=== PATIENT | female | born 1960 ===

== ENCOUNTER 2017-11-24 06:07 | Day surgery (SDC) | payer MEDICAID ==
--- NOTE | 2017-11-24 07:24 | ED PDOC ---
Upper Extremity Pain/Injury Time Seen by Provider: 11/24/17 07:10 Chief Complaint (Nursing): Upper Extremity Problem/Injury History Per: Patient History/Exam Limitations: no limitations Onset/Duration Of Symptoms: Gradual (3 montha) Current Symptoms Are (Timing): Still Present Quality: Dull Severity: Mild Exacerbating Factor(s): Movement Additional History Per: Patient Additional Complaint(s): pt sent in by Dr moreno for worsening elft shoulder pain after surgery, no other complaints no hand n/t/w Past Medical History Reviewed: Historical Data, Nursing Documentation, Vital Signs Vital Signs: Last Vital Signs Temp 98.7 F 11/24/17 06:27 Pulse 60 11/24/17 06:27 Resp 16 11/24/17 06:27 BP 186/106 H 11/24/17 06:27 Pulse Ox 99 11/24/17 06:27 - Medical History PMH: No Chronic Diseases, HTN - Family History Family History: States: Unknown Family Hx - Living Arrangements Living Arrangements: With Family - Social History Current smoker - smoking cessation education provided: No - Home Medications Home Medications: Ambulatory Orders Medication Instructions Recorded Aspirin [Ecotrin] 81 mg PO DAILY 11/24/17 Atorvastatin [Lipitor] 20 mg PO DAILY 11/24/17 Furosemide [Lasix] 20 mg PO DAILY 11/24/17 Omeprazole [Omeprazole] 20 mg PO DAILY 11/24/17 Valsartan [Diovan] 160 mg PO DAILY 11/24/17 amLODIPine [Norvasc] 10 mg PO DAILY 11/24/17 oxyCODONE/Acetaminophen [Percocet 1 tab PO TID PRN 11/24/17 5/325 mg Tab] - Allergies Allergies/Adverse Reactions: Allergies Allergy/AdvReac Type Severity Reaction Status Date / Time No Known Allergies Allergy Verified 11/24/17 06:32 Review of Systems ROS Statement: Except As Marked, All Systems Reviewed And Found Negative Constitutional: Negative for: Fever, Chills Cardiovascular: Negative for: Chest Pain Respiratory: Negative for: Shortness of Breath Gastrointestinal: Negative for: Nausea, Vomiting Musculoskeletal: Positive for: Arm Pain (left) Neurological: Negative for: Weakness, Numbness Physical Exam - Reviewed Nursing Documentation Reviewed: Yes Vital Signs Reviewed: Yes - Physical Exam Appears: Positive for: Well Head Exam: Positive for: ATRAUMATIC, NORMAL INSPECTION, NORMOCEPHALIC Eye Exam: Positive for: Normal appearance Neck: Positive for: Normal, Painless ROM, Supple Cardiovascular/Chest: Positive for: Regular Rate, Rhythm, Chest Non Tender. Negative for: Edema, Gallop, Murmur, Bradycardia, Tachycardia, Irregularly Irregular Respiratory: Positive for: Normal Breath Sounds. Negative for: Decreased Breath Sounds, Accessory Muscle Use, Crackles, Rales, Rhonchi, Stridor, Wheezing , Respiratory Distress Pulses-Radial (L): 2+ Pulses-Radial (R): 2+ Back: Positive for: Normal Inspection Extremity: Positive for: Normal ROM (pain with rom of left shoulder prev anterior shoulder scar nvi), Capillary Refill (nml). Negative for: Tenderness, Deformity, Swelling Neurologic/Psych: Positive for: Alert, belt lacer II-XII, Oriented. Negative for: Motor/Sensory Deficits - Laboratory Results Result Diagrams: 11/24/17 07:50 - ECG ECG: Positive for: Interpreted By Me ECG Rhythm: Positive for: Normal QRS, Normal ST Segment, Atrial Flutter. Negative for: ST/T Changes Interpretation Of Abn EKG: rate of 59 per pt has history of atrial flutter O2 Sat by Pulse Oximetry: 99 Pulse Ox Interpretation: Normal - Radiology X-Ray: Interpreted by Mt X-Ray Interpretation: No Acute Disease - Progress ED Course And Treament: right shoulder xray prev hardware intact, no fx or dislocation Disposition - Clinical Impression Clinical Impression: Shoulder pain, left - Patient ED Disposition Is Patient to be Admitted: Yes Counseled Patient/Family Regarding: Studies Performed, Diagnosis - Disposition Disposition Time: 08:00 Condition: STABLE - Pt Status Changed To: Hospital Disposition Of: Observation - POA Present On Arrival: None
[2017-11-24 08:12] LABS: BASO # 0.1 K/uL (0.0-0.2); EOS # 0.1 K/uL (0.0-0.7); EOS % 2.1 % (0.0-4.0); HEMOGLOBIN 12.2 g/dL (12.0-16.0); LYMPH # 2.1 K/uL (1.0-4.3); LYMPH % 37.7 % (20.0-40.0); MEAN CELL VOLUME 80.6 fl (81.0-99.0); MEAN CORPUSCULAR HEMOGLOBIN 25.8 pg (27.0-31.0); MEAN PLATELET VOLUME 8.6 fl (7.2-11.7); MONO # 0.3 K/uL (0.0-0.8); MONO % 5.8 % (0.0-10.0); NEUT % 53.4 % (50.0-75.0); NRBC % 0.1 % (0.0-0.0); RBC 4.73 Mil/uL (3.80-5.20); RED CELL DISTRIBUTION WIDTH 14.2 % (11.5-14.5); WHITE BLOOD COUNT 5.5 K/uL (4.8-10.8)
[2017-11-24 08:27] LABS: CALCIUM 9.6 mg/dL (8.4-10.2); GFR AFRICAN-AMERICAN > 60; GFR NON-AFRICAN AMERICAN > 60
--- NOTE | 2017-11-24 08:27 | CARD ---
APPROVED REPORT EKG Measurement Heart [id number] <Conclusion> Sinus bradycardia with 1st degree AV block Voltage criteria for left ventricular hypertrophy Nonspecific T wave abnormality Abnormal ECG
[2017-11-24 08:30] LABS: BLOOD UREA NITROGEN 16 mg/dl (7-17)
[2017-11-24 08:35] LABS: INR 0.9 (0.9-1.2); PROTHROMBIN TIME 9.9 Seconds (9.8-13.1)
[2017-11-24 08:44] VITALS: RESP 18
[2017-11-24] MEDS ORDERED: Lidocaine 2% w Epi 1:100,000 Inj IJ ONE (10:47)
[2017-11-24] MEDS ORDERED: Lidocaine 1% Inj (20ml) ONE (10:47)
[2017-11-24] MEDS ORDERED: EPINEPHrine 1 mg/ml (1:1000) Inj ONE (10:47)
[2017-11-24] MEDS ORDERED: Bupivacaine 0.5% Inj(30mL) ONE (10:47)
--- NOTE | 2017-11-24 10:56 | RAD ---
PROCEDURE: CHEST RADIOGRAPH, 1 VIEW HISTORY: pre op COMPARISON: None available. FINDINGS: LUNGS: Clear. PLEURA: No pneumothorax or pleural fluid seen. CARDIOVASCULAR: No radiographic findings to suggest acute or significant cardiovascular disease. OSSEOUS STRUCTURES: No significant abnormalities. VISUALIZED UPPER ABDOMEN: Normal. OTHER FINDINGS: None. IMPRESSION: No active disease. Concordant results with the preliminary interpretation rendered by the emergency department physician procedure.
[2017-11-24] MEDS ORDERED: ePHEDrine 50 mg/ml Inj ONE (11:07)
[2017-11-24] MEDS ORDERED: Rocuronium 10 mg/ml (5 ml) ONE (11:07)
[2017-11-24] MEDS ORDERED: Succinylcholine 200 mg/10 ml Inj IV ONE (11:07)
[2017-11-24] MEDS ORDERED: Propofol 10 mg/ml Inj (20 ML) ONE (11:07)
[2017-11-24] MEDS ORDERED: Midazolam 2 MG/2 ML VIAL ONE (11:07)
[2017-11-24 11:43] LABS: BLOOD UREA NITROGEN 13 mg/dl (7-17); CALCIUM 9.7 mg/dL (8.4-10.2); GFR AFRICAN-AMERICAN > 60; GFR NON-AFRICAN AMERICAN > 60
[2017-11-24] MEDS ORDERED: Ropivacaine 0.5% 30ML IV ONE (11:54)
[2017-11-24] MEDS ORDERED: ceFAZolin IV 1 gm in Dextrose 1 GM/50 ML BAG IVPB ONE (12:38)
[2017-11-24] MEDS ORDERED: Lactated Ringer's 1,000 ML IV ONE ×2 (12:47→15:00)
--- NOTE | 2017-11-24 12:49 | RAD ---
PROCEDURE: Radiographs of the Left Shoulder HISTORY: pain after surgery COMPARISON: No prior. FINDINGS: BONES: No evidence of acute fracture. No evidence of orthopedic hardware failure. JOINTS: Normal. Glenohumeral and acromioclavicular joints preserved. No osteoarthritis. SOFT TISSUES: Normal. OTHER FINDINGS: None. IMPRESSION: No significant or acute findings to account for/ related to the clinical presentation.
[2017-11-24] MEDS ORDERED: Liquid Adhesive TOP ONE (13:20)
[2017-11-24] MEDS ORDERED: Dexamethasone 4 mg/1 ml IVP PRN (13:59)
[2017-11-24] MEDS ORDERED: HYDROmorphone 0.5 mg/0.5 ml ISec IVP PRN (13:59)
--- NOTE | 2017-11-24 14:04 | PCM.ANESB1 ---
Interscalene Block - Brachial Plexus Date of Procedure: 11/24/17 Procedure Performed: Interscalene Block of Brachial Plexus Left - Procedure Interscalene Block of Brachial Plexus: This procedure was explained to the patient that it is for post-operative pain management. Consent was obtained after a thorough discussion with the patient regarding the benefits and possible complications of local anesthetic block of the Brachial Plexus at the Interscalene area. The patient was brought to the Operating Room and standard monitors were applied. Time out was held with the circulating nurse to confirm the correct surgery and appropriate block. The patient's head was gently rotated away from the __left____operative shoulder and the anterior scalene groove was carefully palpated. The ultrasound transducer was then applied to the skin in the transverse plane and the brachial plexus was visualized lateral to the carotid artery and in between the anterior and middle scalene muscles. After identification,the anterior lateral portion of the neck was prepped with Chloroprep solution three. At this point, a # 22 gauge Stimuplex 2 inches insulated needle was inserted into the interscalene groove and directed in a caudal and midline direction. The needle was inserted lateral to the ultrasound transducer in-plane towards the brachial plexus in a [id number] direction. Needle advancement was performed carefully under direct ultrasound visualization. Nerve stimulator was used and twitched of the affected extremity including the hand brachialis muscles, biceps and the deltoid was obtained at a current of __0.3___MA. After repeated negative aspiration,__5___cc of Ropivacaine 0.5%, were injected and this was followed with ___25__cc of ___ropivacaine 0.5__% ____ . Under ultrasound guidance the local anesthetics were observed surrounding the roots of the brachial plexus. The needle was removed intact. The patient had stable vital signs with no signs of LAST. The patient tolerated the interscalene block of the bracheal plexus well with stable vital signs and was prepared for subsequent surgery.
[2017-11-24 16:08] VITALS: O2SAT 100
[2017-11-24 17:03] VITALS: BP 145/81; PULSE 57; TEMP 97.6
--- NOTE | 2017-11-25 09:47 | OP ---
PROCEDURE DATE: 11/24/2017 PRIMARY SURGEON: Deandre Roach MD OVERCOIL STEPPER: None. PREOPERATIVE DIAGNOSES: 1. Left frozen shoulder. 2. Left shoulder subacromial impingement. POSTOPERATIVE DIAGNOSES: 1. Left frozen shoulder. 2. Left shoulder subacromial impingement. PROCEDURES: 1. Left shoulder arthroscopic lysis of adhesion and manipulation under anesthesia. 2. Left shoulder subacromial decompression. 3. Left shoulder biceps tenotomy. 4. Left shoulder debridement and synovectomy. BLOOD LOSS: 10 mL. ANESTHESIA: General in the left upper extremity block. SPECIMENS: None. DRAINS: None. COMPLICATIONS: None. INDICATIONS: After failing a course of nonoperative therapy, the patient elected to undergo the above procedures. In the office the risks and possible complications of the shoulder arthroscopy were discussed in detail with the patient. These risks include, but are not limited to continued pain, lack of motion, infection, vascular injury, and nerve injury including axillary nerve dysfunction, reflex sympathetic dystrophy, compartment syndrome, limb loss, and . The patient had a history of fall with left proximal humerus fracture. She underwent open reduction and internal fixation. The patient developed frozen shoulder with limitation of motion. She has failed conservative therapy and physical therapy and indicated for the above procedures. The patient expressed an understanding of the risks and possible benefits of the procedure and was also made aware of the alternatives to surgery. An informed consent was obtained, and was checked immediately preop. Procedure 1: The patient was correctly identified in the holding area, and the left shoulder was marked with the surgeon's initials. The patient was transported to the operating room and placed in the supine position and regional and general anesthesia was obtained. A preoperative orthopedic examination revealed shoulder range of motion, a passive range of motion of 70 degrees of forward elevation, 80 degrees of external rotation, and 100 degrees of abduction, no instability. Procedure 2: The patient was then placed in a beach chair position utilizing the beach chair positioning device. The patient's head was stabilized, and the indicated upper extremity was prepped and draped in the standard surgical fashion. The anatomic structures were outlined with a skin marker, and 1% lidocaine with epinephrine was injected into the posterior, anterior, and lateral portal areas. A #21-gauge spinal needle was placed in the glenohumeral joint from the posterior portal, and 10 mL of sterile saline was injected into the glenohumeral joint. Return of fluid indicated correct needle placement into the joint. The needle was then withdrawn, and a #11 blade was used to make a 1-cm incision at the posterior portal site. Next, the arthroscopic blunt trocar was inserted into the glenohumeral joint. A #21-gauge spinal needle was placed through the anterior rotator interval, and the anterior portal was made with a #11 blade after the spinal needle was withdrawn. A 7-mm cannula was then inserted after the skin incision was made, and the arthroscopic probe was then used to examine the internal structures of the glenohumeral joint. With the shoulder abducted and externally rotated position, the articular surface of the rotator cuff was visualized. The arthroscope and probe were then switched from posterior to anterior. The posterior labrum, posterior capsule, and biceps anchor reflection was then inspected with the arthroscope in the anterior portal position. Examination of the glenohumeral joint revealed: 1. Extensive synovitis. 2. Anterior capsular adhesion. 3. Biceps tendon synovitis and fraying. The radiofrequency device was introduced through the anterior portal, and a radiofrequency anterior capsular rotator interval lysis of adhesions was performed. The anterior capsule was released to optimize range of motion. The radiofrequency device was used to provide hemostasis during this procedure. After the lysis of adhesions, passive range of motion measured to 170 degrees of forward elevation, 100 degrees of external rotation, and 170 degrees of abduction. The full radius shaver was used to mechanically debride loose chondral edges of the glenoid to a stable border. Extreme care was taken to not disrupt the adjacent chondral surface. The edge of the debrided area was probed to ensure chondral stability. . Upon careful arthroscopic evaluation of biceps tendon and its anchor site at the labrum, it was noted to be highly frayed and tears not amenable to repair. Due to tissue quality and patient's age, decision was made to proceed with biceps tenotomy. Using arthroscopic scissors, biceps tenotomy was successfully performed. The loose edges of labrum were debrided using radiofrequency probe and arthroscopic shaver. Excessive glenohumeral synovitis was cleared with a 4.0 mm full radius shaver. The hypertrophic, erythematous synovium was resected. Hemostasis was maintained with the radiofrequency device. At this point, the arthroscope was withdrawn from the glenohumeral joint, and subacromial space was then entered using a blunt trocar. Gentle resistance sweeping against the coracoacromial ligament confirmed proper placement of the sheath, and the arthroscope was inserted. A 1-cm incision was made at the inferolateral acromial area to create the lateral portal. Examination of the subacromial space revealed: 1. Extensive subacromial bursitis. 2. Subacromial spur. Visualization of the subacromial space was difficult due to excessive bursitis. A bursectomy was performed using a combination of radiofrequency device as well as a 4.0-mm full radius motorized shaver. The soft tissue on the undersurface of the acromion was debrided utilizing the 4.0-mm full radius shaver and the radiofrequency device was used for hemostasis. At this point, the coracoacromial ligament was released with the radiofrequency device and the acromial branch of the thoracoacromial artery was coagulated with the same instrument. Subacromial decompression was performed with a 4.0-mm conical tequila using both the medial portal and the "cutting-block" precision acromioplasty technique from the posterior portal. The undersurface of the acromion was resected to a flat, smooth surface to allow unrestricted excursion of the rotator cuff. The subacromial space was then irrigated with 300 mL of sterile saline, and closure was instituted with a 3-0 Monocryl suture. A dressing was placed consisting of Xeroform, 4x4's, ABD pads, and silk tape. In addition, an "Ice-Man" automated portable cooling system pad was applied to the shoulder and secured in place. The patient was placed in a sling with an ABD pad in the axilla. The patient was then placed in a supine position and . The patient was transferred to the recovery room in stable condition having tolerated the procedure well. Plan-1 Patient is given appropriate postop rehab protocol. Postoperatively, the patient will be started on phase I shoulder rehab as well as Codman exercises, and we will advance rapidly to regain full range of motion and optimized shoulder function. Follow up will be in 7 days in the office. Patient instructed to start physical therapy on postoperative day 1. The sponge and needle count at the close of the case was correct. The attending surgeon was scrubbed and present for the case, including all of the intra-articular arthroscopic procedures. Deandre Roach MD
== END 2017-11-24 17:20 | disposition home or self-care (01) ==
LOC: H.ER 06:07 → H.SDS 07:26 → H.ER 07:26 → H.SDS 17:20
PROVIDERS: ATTEND Orthopaedic Surgery
DX: M75.02 Adhesive capsulitis of left shoulder (principal); I44.0 Atrioventricular block, first degree; Z86.73 Personal history of transient ischemic attack (TIA), and cerebral infarction without residual deficits; E78.5 Hyperlipidemia, unspecified; I10 Essential (primary) hypertension; Z86.718 Personal history of other venous thrombosis and embolism; Z79.01 Long term (current) use of anticoagulants; G47.30 Sleep apnea, unspecified; M75.52 Bursitis of left shoulder
CPT/HCPCS: 29823; 29826; 29828; 36415; 71045; 73030; 80048; 85025; 85610; 85730; 86850; 86900; 93005; 99284; J0171; J0330; J0690; J2001; J2250; J2405; J2704; J2765; J3010; J7030; J7120